=== PATIENT | female | born 1985 | race Caucasian/White ===

== ENCOUNTER → 2017-03-18 | Outpatient (CLI) | payer OTHER ==
[~2017-03-18] MED LIST: IOPAMIDOL (ISOVUE-300) 100 ML BTL ONE
== END ==
LOC: FIMAGING 12:01
PROVIDERS: ATTEND Internal Medicine
DX: R10.31 Right lower quadrant pain (principal)
CPT/HCPCS: Q9967

== ENCOUNTER → 2017-11-25 | Outpatient (CLI) | payer OTHER | LOC: FIMAGING 11:00 | PROVIDERS: ATTEND Obstetrics & Gynecology | DX: N63.23 Unspecified lump in the left breast, lower outer quadrant (principal); R92.8 Other abnormal and inconclusive findings on diagnostic imaging of breast ==

== ENCOUNTER 2017-12-02 07:08 | Day surgery (SDC) | payer OTHER ==
--- NOTE | 2017-12-01 20:36 | GHP ---
[f rep st] PREOP HISTORY AND PHYSICAL DATE OF ADMISSION: 12/02/2017 DATE OF SERVICE: 12/02/2017. CHIEF COMPLAINT: Breast mass. HISTORY OF PRESENT ILLNESS: The patient is a -bjpw-kln woman who presents to discuss breas t mass. She noticed symptoms 6 weeks ago. She had felt a lump on her left breast that was tender. She had an ultrasound performed which showed BI-RADS 3. She had a mammogram that showed a nodule. T here is no family history of breast or ovarian cancer. Age of menarche 16. She has had 2 pregnancie s, 1st at age 25. No history of radiation or hormones. PAST MEDICAL HISTORY: Lupus. PAST SURGICAL HISTORY: None. ALLERGIES: Amoxicillin, Keflex, sulfa. FAMILY HISTORY: No history of breast cancer. Tobacco: No tobacco use. She is with childre n. REVIEW OF SYSTEMS: 10-point review of systems negative. PHYSICAL EXAMINATION: GENERAL: Pleasant, well-nourished, well-groomed woman. HEENT: Normocephalic . No gross hearing deficits. Mucous membranes moist. Pupils equal and round. No scleral icterus. LUNGS: Clear to auscultation bilaterally. No increased work of breathing. CARDIAC: Regular rate. No peripheral edema. LYMPH: No cervical, supraclavicular, or axillary lymphadenopathy. BREASTS: Performed in the upright and supine position. On her left breast, a 2 cm nodule was palpated in the lower inner quadrant toward the sternum. NEURO: Grossly intact. PSYCH: Mood and affect normal. SKIN: Grossly intact. IMPRESSION AND PLAN: A -kfed-oil with palpable breast mass. She desires excision. We dis cussed MRI, but due to the pain, she would like it excised. The risks and benefits including, but no t limited to, stroke, heart attack, , blood clots, infection, bleeding were discussed. She had her questions answered to her satisfaction and signed the informed consent. /[id number]/MODL
[2017-12-02] MEDS ORDERED: VANCOMYCIN HCL/NORMAL SALINE 250 ML IV ONE (07:30)
[2017-12-02] MEDS ORDERED: VANCOMYCIN PHARMACY TO DOSE MISC ONE (07:32)
[2017-12-02] MEDS ORDERED: LR 1,000 ML IV ONE (07:32)
[2017-12-02] MEDS ORDERED: LIDOCAINE 1% 2 ML INJ ID PRN (07:32)
[2017-12-02] MEDS ORDERED: BUPIVACAINE 0.25% 30 ML SDV ONE (07:56)
[2017-12-02] MEDS ORDERED: LIDOCAINE 1% 300 MG/30 ML SDV ONE (07:58)
--- NOTE | 2017-12-02 08:22 | PDHPUP ---
History & Physical Update H&P update statement: This history and physical update is based on an assessment of the patient which was completed after admission or registration (within 24 hours), but prior to the surgery/procedure. H&P update: H&P reviewed & patient examined, no change in patient's condition since H&P completed
--- NOTE | 2017-12-02 09:32 | POSTOPPROG ---
Post Op Note Date of Operation: 12/02/17 Surgeon: Pilar Abernathy Anesthesiologist: NOne Anesthesia: Local (Specify) (1% Lidocaine and 0.25% Marcaine) Pre-op Diagnosis: L painful breast mass Post-op Diagnosis: same Indication: 31 yo with painful breast mass Procedure: Excisional biopsy L breast Findings: Fibrous tissue on pec Inf/Abcess present in the surg proc area at time of surgery?: No EBL: Minimal Specimen(s): breast tissue
[2017-12-02 09:46] VITALS: BP 115/80
--- NOTE | 2017-12-02 10:13 | GOP ---
[f rep st] OPERATIVE REPORT DATE OF OPERATION: 12/02/2017 SURGEON: Pilar Abernathy MD ANESTHESIA: None. PREOPERATIVE DIAGNOSIS: Painful left breast mass. POSTOPERATIVE DIAGNOSIS: Painful left breast mass. PROCEDURE PERFORMED: Excisional breast biopsy. FINDINGS: Fibrous tissue. SPECIMENS: Left breast tissue. ESTIMATED BLOOD LOSS: 5 cc. INDICATIONS: The patient is a 31-year-old woman who developed a painful left breast mass. DESCRIPTION OF PROCEDURE: Patient was brought into the operating room and her left breast was preppe d and draped in the usual sterile fashion. She desired only local anesthesia. I infiltrated the are a with 0.25% Marcaine mixed with 1% lidocaine. I made an incision over the mass we palpated preopera tively. I created superior and inferior skin flaps and dissected down beyond the level of the tissue . At one point, this became painful and the patient was able to verbalize that was the painful mass. Once this fibrous tissue was excised, she immediately felt better. This was submitted to Pathology for permanent. Hemostasis was achieved. The deep layer was closed with 3-0 Vicryl. Skin closed wi th 3-0 Vicryl followed by 4-0 Monocryl. Mastisol, Steri-Strips, and a sterile dressing were applied. She was transferred back to PACU in stable condition. She was already awake in the operating room. /[id number]/MODL
== END 2017-12-02 10:03 | disposition home or self-care (01) ==
LOC: FSGY 07:08
PROVIDERS: ATTEND Surgery
PROC: 0HBU0ZZ Excision of Left Breast, Open Approach (ICD-10-PCS; principal; 2017-12-02 08:45)
DX: D24.2 Benign neoplasm of left breast (principal); N60.12 Diffuse cystic mastopathy of left breast; N60.22 Fibroadenosis of left breast; N64.4 Mastodynia
CPT/HCPCS: J3370

== ENCOUNTER → 2018-05-19 | Outpatient (CLI) | payer OTHER | LOC: FIMAGING 08:30 | PROVIDERS: ATTEND Internal Medicine | DX: M79.661 Pain in right lower leg (principal) ==